=== PATIENT | female | born 1985 | race Caucasian/White ===

== ENCOUNTER 2018-01-17 06:00 | Inpatient (IN) | payer OTHER ==
[2018-01-17] MEDS ORDERED: TERBUTALINE SULFATE 1 MG/ML VIAL IV PRN (06:30)
[2018-01-17] MEDS ORDERED: IBUPROFEN 600 MG TAB PO PRN (06:30)
[2018-01-17] MEDS ORDERED: LR 1,000 ML IV PRN (06:30)
[2018-01-17] MEDS ORDERED: MISOPROSTOL 200 MCG TAB PR PRN (06:30)
[2018-01-17] MEDS ORDERED: OXYTOCIN/RINGERS LACTATE 1,000 ML IV PRN (06:30)
[2018-01-17] MEDS ORDERED: LIDOCAINE 1% 300 MG/30 ML SDV SC PRN (06:30)
[2018-01-17] MEDS ORDERED: OLIVE OIL 118 ML BTL MISC PRN (06:30)
[2018-01-17] MEDS ORDERED: EPSOM SALT 454 GM TP PRN (06:30)
[2018-01-17 07:13] LABS: PLATELET COUNT 261 10^3/uL (150-400)
--- NOTE | 2018-01-17 08:18 | PDGENHP ---
History and Physical History and Physical: CARE: [facility] HPI: Patient is a 32 yo with IUP@41-1wks that presents to L&D for IOL. She was seen in office 01/16/18 and had pritchett balloon placed with 40mL. She presents to L& D this morning for IOL. She denies any regular contractions, LOF, Vb. She reports +FM. EDC: 01/09/18 which is based on LMP: 04/03/17 which is known and consistent with Ultrasound at 8 weeks. Her is complicated by: - migraines with aura Review of Systems: Constitutional: Denies any fever, chills, or fatigue HEENT: denies any visual changes, difficulty swallowing, hearing loss Cardiovascular: Denies any chest pain, palpitations, leg swelling Respiratory: denies any cough, wheezing, or shortness of breathe GI: Denies any nausea, vomiting, diarrhea, constipation : denies any dysuria, urgency, frequency, vaginal bleeding Musculoskeletal: denies any muscle or bone pain Skin: denies any rashes Neuro: denies any headache, seizures, lightheadedness, dizziness, or loss of consciousness Psychiatric: denies any depression, anxiety, or SI/HI thoughts HISTORY: Previous OB history: G1 Past medical history: migraines with aura Past surgical history: oral surgery Medications: PNV Allergies (list reaction): NKDA LABS: Rh: A+ ABS: Neg Rubella: Immune HbsAg: NR HIV: NR VDRL: NR 1hr: 122 GC: Neg Chlamydia: Neg Pap: Normal GBS: neg BMI: (prepreg)19 PHYSICAL EXAM: Constitutional: WN, A&Ox3 HEENT: normocephalic atraumatic, supple Heart: RRR, no murmur Chest: CTA-B Abdomen: Soft, nontender, gravid SVE: /th/high (in office 01/16/18) Extremities: 1+ pedal edema, negative homans sign Neuro: grossly normal Psych: normal affect assessment: Reassuring FHTs,cat 1 FHR tracing +accels, no decels, moderate variability Contractions: toco: none Assessment: 1) 32 yo with IUP@41-1wks 2) IOL 3) GBS negative 4) Cat 1 FHR tracing Plan: 1) Admit to L&D 2) proceed with IOL 3) pain management PRN 4) reassess 2h/PRN 5) anticipate
[2018-01-17] MEDS ORDERED: MISOPROSTOL 100 MCG TAB PO SCH (08:30)
--- NOTE | 2018-01-17 09:25 | OBPROG ---
Labor Progress Note Assessment/Plan: Assessment: [id number] with IUP@41-1wks PD IOL GBS Negative cat 1 FHR tracing Plan: pritchett balloon, deflated and cervix thick- therefore will cont with cervical ripening with cytotec pt consents to use of cytotec cont EFM reg diet reassess 4hr/PRN 01/17/18 09:23 Subjective/Intrapartum Course: 01/17/18 09:22 pt doing well, denies any pain. She denies any contractions, LOF, VB. FOB at BS , supportive. Objective: 01/17/18 06:52 Patient ABO/Rh A POSITIVE 01/17/18 06:52 - SVE Dilation (cm): 2 Effacement (%): 0 Station: -3 - Contraction Pattern Assessment Current Contraction Pattern: Irregular Oxytocin Orders Assessment - Pre-Induction/Augmentation Assessment Gestational Age: 41 week(s) and 1 day(s) ICD10 Worksheet Patient Problems: Problems Problem Status Onset Encounter for induction of labor Acute - ICD10 Problem Qualifiers (1) Encounter for induction of labor
--- NOTE | 2018-01-17 11:15 | OBPROG ---
Labor Progress Note Assessment/Plan: Assessment: strip check: FHR: cat 1 FHR tracing baseline: 140, +accels, no decels UC: toco: q 3-6min Subjective/Intrapartum Course: 01/17/18 09:22 pt doing well, denies any pain. She denies any contractions, LOF, VB. FOB at BS , supportive. Objective: 01/17/18 06:52 Patient ABO/Rh A POSITIVE 01/17/18 06:52 - Contraction Pattern Assessment Current Contraction Pattern: Regular, Irregular - FHR Assessment Cabral FHR (bpm): 140 FHR Pattern Variability: Moderate FHR Category: 1 Oxytocin Orders Assessment - Pre-Induction/Augmentation Assessment Gestational Age: 41 week(s) and 1 day(s) ICD10 Worksheet Patient Problems: Problems Problem Status Onset Encounter for induction of labor Acute Encounter for induction of labor Acute - ICD10 Problem Qualifiers (1) Encounter for induction of labor
--- NOTE | 2018-01-17 13:53 | OBPROG ---
Labor Progress Note Assessment/Plan: Assessment: [id number] with IUP@41-1wks PD IOL cat 1 FHR Tracing Plan: cont EFM will wait 1 hour to reassess contraction pattern, if able will give cytotec again. Subjective/Intrapartum Course: 01/17/18 09:22 pt doing well, denies any pain. She denies any contractions, LOF, VB. FOB at BS , supportive. Objective: 01/17/18 06:52 Patient ABO/Rh A POSITIVE 01/17/18 06:52 - Contraction Pattern Assessment Current Contraction Pattern: Regular Oxytocin Orders Assessment - Pre-Induction/Augmentation Assessment Gestational Age: 41 week(s) and 1 day(s) ICD10 Worksheet Patient Problems: Problems Problem Status Onset Encounter for induction of labor Acute Encounter for induction of labor Acute
[2018-01-17] MEDS ORDERED: LIDOCAINE 1% 300 MG/30 ML SDV ONE (15:41)
[2018-01-17] MEDS ORDERED: AMMONIA AROMATIC 1 EACH AMP IH ONE (15:41)
[2018-01-17] MEDS ORDERED: OXYTOCIN 10 UNIT/ML VIAL ONE (15:41)
[2018-01-17] MEDS ORDERED: TERBUTALINE SULFATE 1 MG/ML VIAL ONE (15:41)
[2018-01-17] MEDS ORDERED: OLIVE OIL 118 ML BTL ONE (15:41)
[2018-01-17] MEDS ORDERED: MISOPROSTOL 200 MCG TAB ONE (15:42)
--- NOTE | 2018-01-17 16:09 | OBPROG ---
Labor Progress Note Assessment/Plan: Assessment: [id number] with IUP@41-1wks PD IOL cat 1 FHR Tracing GBS Negative Plan: place pritchett, monitor overnight and start IOL in the morning pain management PRN reassess 2hr/PRN Discussed with Dr Price- agrees with plan of care 01/17/18 16:06 Subjective/Intrapartum Course: 01/17/18 09:22 pt doing well, denies any regular contractions. She reports feeling some cramping with contractions. She is able to rest. She denies any LOF. She does report some bloody show. She reports +FM. FOB @ BS, supportive. Objective: 01/17/18 06:52 01/17/18 06:50 Patient ABO/Rh A POSITIVE 01/17/18 06:52 Uric Acid 2.5 mg/dL (2.5-6.8) 01/17/18 06:50 AST 30 IU/L (14-46) 01/17/18 06:50 ALT 23 IU/L (9-52) 01/17/18 06:50 Lactate Dehydrogenase 651 IU/L (313-618) H 01/17/18 06:50 - SVE Dilation (cm): 2 Effacement (%): 50 Station: -3 (posterior) - Contraction Pattern Assessment Current Contraction Pattern: Regular - Procedures Non-surgical Procedures: Other (Specify) (pritchett balloon placed with 40mL, pt tolerated procedure well) Oxytocin Orders Assessment - Pre-Induction/Augmentation Assessment Gestational Age: 41 week(s) and 1 day(s) ICD10 Worksheet Patient Problems: Problems Problem Status Onset Encounter for induction of labor Acute Encounter for induction of labor Acute
[2018-01-17] MEDS: MISOPROSTOL 50 MCG CAP PO SCH ×2 (16:39→22:49)
[2018-01-17] MEDS ORDERED: ACETAMINOPHEN 500 MG TAB PO PRN (19:23)
--- NOTE | 2018-01-17 19:25 | OBPROG ---
Labor Progress Note Assessment/Plan: Assessment: [id number] with IUP@41-1wks PD IOL- pritchett bulb in place cat 1 FHR Tracing GBS Negative Plan: cont EFM ambien to help sleep tylenol and IV fluid bolus to promote normal temp reassess PRN plan to start pitocin at 0600 Subjective/Intrapartum Course: pt doing well, denies any regular contractions, but states she is still feeling some cramping with contractions. She is able to rest. She denies any LOF. She does report some bloody show. She reports +FM. FOB @ BS, supportive. Objective: 01/17/18 06:52 01/17/18 06:50 Patient ABO/Rh A POSITIVE 01/17/18 06:52 Uric Acid 2.5 mg/dL (2.5-6.8) 01/17/18 06:50 AST 30 IU/L (14-46) 01/17/18 06:50 ALT 23 IU/L (9-52) 01/17/18 06:50 Lactate Dehydrogenase 651 IU/L (313-618) H 01/17/18 06:50 - Contraction Pattern Assessment Current Contraction Pattern: Regular - Procedures Non-surgical Procedures: Other (Specify) (pritchett balloon in place) Oxytocin Orders Assessment - Pre-Induction/Augmentation Assessment Gestational Age: 41 week(s) and 1 day(s) ICD10 Worksheet Patient Problems: Problems Problem Status Onset Encounter for induction of labor Acute Encounter for induction of labor Acute
[2018-01-17] MEDS ORDERED: LR 1,000 ML IV SCH (19:30)
[2018-01-17] MEDS ORDERED: ZOLPIDEM TARTRATE 5 MG TAB PO PRN (20:04)
--- NOTE | 2018-01-17 21:17 | OBPROG ---
Labor Progress Note Assessment/Plan: Assessment: [id number] with IUP@41-1wks PD IOL- pritchett bulb in place cat 1 FHR Tracing GBS Negative Maternal Fever Plan: doppler FHR q 4hours ambien to help sleep tylenol and IV fluid bolus PRN to promote normal temp reassess PRN plan to start pitocin at 0600 01/17/18 21:15 Subjective/Intrapartum Course: pt doing well, denies any regular contractions, but states she is still feeling some cramping with contractions. She is able to rest. She denies any LOF. She does report some bloody show. She reports +FM. FOB @ BS, supportive.Denies any headaches or chills/aches. 01/17/18 21:15 Objective: 01/17/18 06:52 01/17/18 06:50 Patient ABO/Rh A POSITIVE 01/17/18 06:52 Uric Acid 2.5 mg/dL (2.5-6.8) 01/17/18 06:50 AST 30 IU/L (14-46) 01/17/18 06:50 ALT 23 IU/L (9-52) 01/17/18 06:50 Lactate Dehydrogenase 651 IU/L (313-618) H 01/17/18 06:50 - Contraction Pattern Assessment Current Contraction Pattern: Regular - FHR Assessment Cabral FHR (bpm): 150 FHR Pattern Variability: Moderate FHR Category: 1 - Procedures Non-surgical Procedures: Other (Specify) (pritchett balloon in place) Oxytocin Orders Assessment - Pre-Induction/Augmentation Assessment Gestational Age: 41 week(s) and 1 day(s) ICD10 Worksheet Patient Problems: Problems Problem Status Onset Encounter for induction of labor Acute Encounter for induction of labor Acute
[2018-01-18] MEDS ORDERED: OXYTOCIN/RINGERS LACTATE 30 UNIT/500 ML BAG IV ONE (05:38)
[2018-01-18] MEDS ORDERED: LR 500 ML IV PRN (09:19)
[2018-01-18] MEDS ORDERED: OXYTOCIN/RINGERS LACTATE 500 ML IV SCH (09:30)
--- NOTE | 2018-01-18 12:47 | OBPROG ---
Labor Progress Note Assessment/Plan: Assessment: Pit currently at 12, balloon still in, but getting more uncomfortable. Will recheck in 2 hrs and if balloon is out, AROM, if balloon is not out, will take it down and AROM. FHR Cat 1. Long discussion w pt regarding plan of care. Subjective/Intrapartum Course: pt doing well, denies any regular contractions, but states she is still feeling some cramping with contractions. She is able to rest. She denies any LOF. She does report some bloody show. She reports +FM. FOB @ BS, supportive.Denies any headaches or chills/aches. 01/17/18 21:15 01/18/18 12:44 Pit started this AM around 1000. Pt now feeling regular ctxs that are mildly uncomfortable, but tolerable. Balloon still in place. Objective: 01/17/18 06:52 01/17/18 06:50 Patient ABO/Rh A POSITIVE 01/17/18 06:52 Uric Acid 2.5 mg/dL (2.5-6.8) 01/17/18 06:50 AST 30 IU/L (14-46) 01/17/18 06:50 ALT 23 IU/L (9-52) 01/17/18 06:50 Lactate Dehydrogenase 651 IU/L (313-618) H 01/17/18 06:50 - Contraction Pattern Assessment Current Contraction Pattern: Regular - FHR Assessment Cabral FHR (bpm): 135 FHR Pattern Variability: Moderate FHR Category: 1 - Procedures Non-surgical Procedures: Other (Specify) (pritchett balloon in place) Oxytocin Orders Assessment - Pre-Induction/Augmentation Assessment Gestational Age: 41 week(s) and 1 day(s) ICD10 Worksheet Patient Problems: Problems Problem Status Onset Encounter for induction of labor Acute Encounter for induction of labor Acute
[2018-01-18] MEDS: MISOPROSTOL 50 MCG CAP PO SCH (16:02)
[2018-01-18] MEDS ORDERED: BUPIVACAINE 0.25% 30 ML SDV ONE (16:09)
[2018-01-18] MEDS ORDERED: PHENYLEPHRINE HCL 100 MCG/ML SYR ONE ×2 (16:09→16:41)
--- NOTE | 2018-01-18 16:44 | PREANESOB ---
Obstetric Pre-Anesthesia Info - General Info : 1 Para: 0 GALILEO: 01/09/18 Gestational Age: 41 week(s) and 1 day(s) - Labor Status Cervical Dilation per last OB SVE: 2 Station per last OB SVE: -3 (posterior) Rupture of Membranes Date: 01/18/18 Rupture of Membranes Time: 15:20 Anesthesia Allergies/Adverse Reactions: Allergy/AdvReac Type Severity Reaction Status Date / Time kiwi Allergy Tingling Verified 01/17/18 06:14 of mouth/throat Home Medications: Medication Instructions Recorded 01/17/18 Visit Medications: Generic Name Dose Route Start Last Admin Trade Name Freq PRN Reason Stop Dose Admin Acetaminophen 1,000 mg 01/17/18 19:23 01/17/18 19:32 Tylenol PO 07/16/18 19:22 1,000 mg Q6HRS PRN Administration Pain, Mild/Fever, Can Take PO Oxytocin/Lactated Ringer's 1,000 mls @ 125 mls/hr 01/17/18 06:30 Pitocin 20 Units/Lr (Premix) IV PRN PRN Post bleeding Lactated Ringer's 1,000 mls @ 125 mls/hr 01/17/18 19:30 01/17/18 19:32 Lr IV 07/16/18 19:29 1,000 mls CONT OBDULIO Administration Lactated Ringer's 500 mls @ 500 mls/hr 01/18/18 09:19 Lr IV 01/19/18 09:19 PRN PRN Maternal Hypotension Oxytocin/Lactated Ringer's 500 mls @ 0 mls/hr 01/18/18 09:30 01/18/18 09:20 Pitocin 30 Units/Lr (Premix) IV 07/17/18 09:29 500 mls CONT OBDULIO Administration Protocol Per Protocol Fentanyl 200 mcg/ Bupivacaine 100 mls @ 0 mls/hr 01/18/18 17:00 HCl 20 ml/ Sodium Chloride EP 01/28/18 16:59 CONT OBDULIO Protocol As Directed Ibuprofen 600 mg 01/17/18 06:30 Motrin PO ONCE PRN post , pain Lidocaine HCl 300 mg 01/17/18 06:30 Lidocaine Hcl 1% SC 07/16/18 06:29 ONCE PRN episiotomy Magnesium Sulfate 454 gm 01/17/18 06:30 Epsom Salt TP 07/16/18 06:29 Q1H PRN perineal discomfort Misoprostol 800 - 1,000 mcg 01/17/18 06:30 Cytotec [place] ONCE PRN Vaginal Atony/Bleeding [place] Oil 118 ml 01/17/18 06:30 Sweet Oil MISC 07/16/18 06:29 ONCE PRN perineal massage Terbutaline Sulfate 0.25 mg 01/17/18 06:30 Brethine IV 07/16/18 06:29 ONCE PRN Tachysystole Zolpidem Tartrate 5 mg 01/17/18 20:04 01/17/18 21:38 Ambien PO 07/16/18 20:03 5 mg HS PRN Administration Sleep/Insomnia Discontinued Medications Generic Name Dose Route Start Last Admin Trade Name Freq PRN Reason Stop Dose Admin Ammonia (Aromatic Spirit) Confirm 01/17/18 15:41 Ammonia Aromatic Administered 01/17/18 15:42 Dose 1 each IH .STK-MED ONE Bupivacaine HCl Confirm 01/18/18 16:09 Sensorcaine 0.25% Sdv Administered 01/18/18 16:10 Dose 30 ml .ROUTE .STK-MED ONE Lactated Ringer's 1,000 mls @ 0 mls/hr 01/17/18 06:30 Lr IV 01/18/18 06:29 PRN PRN SEE PROTOCOL CONDITIONS Protocol Per Protocol Lidocaine HCl Confirm 01/17/18 15:41 Lidocaine Hcl 1% Administered 01/17/18 15:42 Dose 300 mg .ROUTE .STK-MED ONE Misoprostol 50 mcg 01/17/18 08:30 01/17/18 09:17 Cytotec PO 07/16/18 08:29 50 mcg Q4H OBDULIO Administration Misoprostol 50 mcg 01/17/18 09:00 01/18/18 16:02 Cytotec PO 07/16/18 08:59 Not Given Q4H OBDULIO Misoprostol Confirm 01/17/18 15:42 Cytotec Administered 01/17/18 15:43 Dose 1,000 mcg .ROUTE .STK-MED ONE [place] Oil Confirm 01/17/18 15:41 Sweet Oil Administered 01/17/18 15:42 Dose 118 ml .ROUTE .STK-MED ONE Oxytocin Confirm 01/17/18 15:41 Pitocin Administered 01/17/18 15:42 Dose 40 unit .ROUTE .STK-MED ONE Oxytocin/Lactated Ringer's Confirm 01/18/18 05:38 Pitocin 30 Units/Lr (Premix) Administered 01/18/18 05:39 Dose 30 unit IV .STK-MED ONE Phenylephrine HCl Confirm 01/18/18 16:09 Neosynephrine Administered 01/18/18 16:10 Dose 1,000 mcg .ROUTE .STK-MED ONE Phenylephrine HCl Confirm 01/18/18 16:41 Neosynephrine Administered 01/18/18 16:42 Dose 1,000 mcg .ROUTE .STK-MED ONE Terbutaline Sulfate Confirm 01/17/18 15:41 Brethine Administered 01/17/18 15:42 Dose 1 mg .ROUTE .STK-MED ONE - Anesthesia History Response to Local Anesthetics: Normal Anesthesia & Operative History: No Prior Problems Family Anesthesia History: Not Applicable - Vital Signs Latest Vital Signs (Nursing): per nursing Height/Weight (Nursing): Height 154.94 cm Weight 64.41 kg - Focused Exam Neck exam: FROM Mallampati Score: Class 3 Mouth exam: normal dental/mouth exam, poor dentition Pulmonary: no respiratory distress Cardiovascular: regular rate and rhythym Labs: 01/17/18 06:52 01/17/18 06:50 Patient ABO/Rh A POSITIVE 01/17/18 06:52 Uric Acid 2.5 mg/dL (2.5-6.8) 01/17/18 06:50 AST 30 IU/L (14-46) 01/17/18 06:50 ALT 23 IU/L (9-52) 01/17/18 06:50 Lactate Dehydrogenase 651 IU/L (313-618) H 01/17/18 06:50 - Plan Anesthetic Plan: HERB Consent Signed and on Chart: Yes Patient/Guardian Understands and Agrees to Plan: Yes
[2018-01-18] MEDS ORDERED: fentaNYL 200 MCG, BUPIVACAINE 0.5% 20 ML in NS 100 ML EP SCH (17:00)
--- NOTE | 2018-01-18 17:07 | POSTANESTH ---
Post Anesthetic Evaluation Cardiovascular Status: Normal, Stable, Similar to Pre-Op Cond Respiratory Status: Normal, Stable, Similar to Pre-op Cond. Level of Consciousness/Mental Status: Can Participate in Eval, Alert and Oriented Pain Control: Adequate, Prn Tx Ordered Nausea/Vomiting Control: Adequate, Prn Tx Ordered Complications Possibly Related to Anesthesia: None Noted
[2018-01-18] MEDS ORDERED: LR 500 ML IV SCH (17:30)
[2018-01-18] MEDS ORDERED: LR 1,000 ML IV SCH (23:45)
[2018-01-18] MEDS ORDERED: ceFAZolin 2 GM/SWFI 2 GM/20 ML SYR IVP ONE (23:45)
[2018-01-18] MEDS ORDERED: LR 500 ML IV ONE (23:48)
--- NOTE | 2018-01-19 00:08 | OBPROG ---
Labor Progress Note Assessment/Plan: Assessment: I had a long talk with Eladia and her partner here this evening. We have been unable to get her into an adequate ctx pattern despite many hours of Pitocin. Pritchett bulb was removed with AROM this AM, Pit continued at that point. IUPC placed. We have never been able to achieve regular strong contractions all day at any Pitocin concentration. We did get up as high as 24 with no real change and serial exams have shown slow and most recently no progress or interval change in the past 2 hours. Baby continues to look good, and at this point only have been ruptured for approximately 10 hrs. I checked her at the time of this note - no cervical change in the past 2 hrs, pattern indeed NOT adequate. Discussed options of now for arrest of dilation versus option of turning off the Pitocin for a holiday/break overnight and restarting again in the AM. I counseled her that its possible we could get a better pattern tomorrow AM, but could not garauntee that. Also induces some small risk as she is now ruptured with IUPC in place and risk of chorio would be something to consider. Ultimately she elected to move ahead with which I think is very reasonable, this has been a long induction process for them. Routine orders, consents including RBA discussed - signed in person. Subjective/Intrapartum Course: pt doing well, denies any regular contractions, but states she is still feeling some cramping with contractions. She is able to rest. She denies any LOF. She does report some bloody show. She reports +FM. FOB @ BS, supportive.Denies any headaches or chills/aches. 01/17/18 21:15 01/18/18 12:44 Pit started this AM around 1000. Pt now feeling regular ctxs that are mildly uncomfortable, but tolerable. Balloon still in place. 01/19/18 00:03 Comfortable, mild lower back pain unchanged over many hours. Objective: 01/17/18 06:52 01/17/18 06:50 Patient ABO/Rh A POSITIVE 01/17/18 06:52 Uric Acid 2.5 mg/dL (2.5-6.8) 01/17/18 06:50 AST 30 IU/L (14-46) 01/17/18 06:50 ALT 23 IU/L (9-52) 01/17/18 06:50 Lactate Dehydrogenase 651 IU/L (313-618) H 01/17/18 06:50 - SVE Dilation (cm): 7 Effacement (%): 80 Station: 0 Membranes: AROM Amniotic Fluid Color: Clear - Contraction Pattern Assessment Current Contraction Pattern: Regular - FHR Assessment Cabral FHR (bpm): 150 FHR Pattern Variability: Moderate FHR Category: 1 - Procedures Non-surgical Procedures: Amniotomy, IUPC, Other (Specify) (pritchett balloon in place) Oxytocin Orders Assessment - Pre-Induction/Augmentation Assessment Gestational Age: 41 week(s) and 1 day(s) ICD10 Worksheet Patient Problems: Problems Problem Status Onset Encounter for induction of labor Acute Encounter for induction of labor Acute
[2018-01-19] MEDS ORDERED: ceFAZolin 2 GM/DEXTROSE 100 ML IV ONE (00:09)
[2018-01-19] MEDS ORDERED: LR 500 ML IV ONE (00:09)
[2018-01-19] MEDS ORDERED: fentaNYL 100 MCG/2 ML INJ ONE (00:21)
[2018-01-19] MEDS ORDERED: morphINE PF 5 MG/10 ML INJ ONE (00:21)
[2018-01-19] MEDS ORDERED: ONDANSETRON 4 MG/2 ML VIAL ONE (00:22)
[2018-01-19] MEDS ORDERED: LR 1,000 ML IV SCH (00:30)
[2018-01-19] MEDS ORDERED: OXYTOCIN 100 UNITS/10 ML VIAL ONE (00:44)
[2018-01-19] MEDS ORDERED: epHEDrine SULFATE 10 MG/ML SYR ONE (00:59)
[2018-01-19] MEDS ORDERED: BISACODYL 10 MG SUPP PR PRN (01:33)
[2018-01-19] MEDS ORDERED: ACETAMINOPHEN 325 MG TAB PO PRN (01:33)
[2018-01-19] MEDS ORDERED: PROMETHAZINE HCL 25 MG/ML INJ IVP PRN (01:33)
[2018-01-19] MEDS ORDERED: POLYETHYLENE GLYCOL 3350 17 GM PKT PO PRN (01:33)
[2018-01-19] MEDS ORDERED: MAGNESIUM HYDROXIDE 30 ML UDCUP PO PRN (01:33)
[2018-01-19] MEDS ORDERED: LACTULOSE 20 GM/30 ML UDCUP PO PRN (01:33)
[2018-01-19] MEDS ORDERED: HYDROCODONE/APAP 5/325 TAB PO PRN ×2 (01:33→01:44)
--- NOTE | 2018-01-19 01:38 | POSTOPPROG ---
Post Op Note Date of Operation: 01/19/18 Surgeon: Elder Chan Provisioning Specialist: CHERELLE Andres Anesthesia: Epidural Pre-op Diagnosis: Failed induction of labor, Arrest of dilation Post-op Diagnosis: Same Procedure: Primary low transverse section Findings: Normal uterus, normal bilateral tubes and ovaries Inf/Abcess present in the surg proc area at time of surgery?: No EBL: 700cc Complications: None Specimen(s): Placenta not sent to path, cord blood gasses sent.
--- NOTE | 2018-01-19 01:42 | SUROPNOTE ---
[facility] Operative Report - Surgery Date of Operation: 01/19/18 Surgeon: Elder Chan Lavatory Attendant: CHERELLE Andres Anesthesia: Epidural Pre-op Diagnosis: Failed induction of labor, Arrest of dilation Post-op Diagnosis: Same Procedure: Primary low transverse section Findings: Normal uterus, normal bilateral tubes and ovaries Inf/Abcess present in the surg proc area at time of surgery?: No EBL: 700cc Complications: None Specimen(s): Placenta not sent to path, cord blood gasses sent. Technique: The patient was taken to the OR where epidural was dosed and anesthesia found to be adequate. The patient was then positioned supine with a leftward tilt and a time-out was performed. She was given weight-based antibiotics prior to skin incision. The abdomen was prepped and draped in normal sterile fashion. A Pfannenstiel skin incision was made with the scalpel and carried down to the fascia. The fascia was incised in the midline and the incision extended bilaterally sharply with scissors. The fascia was dissected off of the underlying rectus muscles superiorly and inferiorly also sharply using scissors. The rectus were in the midline and the peritoneum identified and entered bluntly without issue. The peritoneal incision was extended and the bladder blade was then placed. The vesicouterine junction was identified and a bladder flap created sharply and developed bluntly. A transverse incision was made with the scalpel in the lower uterine segment and extended with cephalad and caudad traction on the incision edges. The head was encountered and easily elevated out of the pelvis and delivered atraumatically, followed by the shoulders and body. The nose and mouth were bulb suctioned. We did wait for 60 seconds before clamping and cutting the cord and then the was handed to pediatric staff. Cord blood gases were sent and the placenta was not sent to pathology. The uterus was then exteriorized and carefully wiped of all debris. The uterus was closed in two layers - the first layer was running with 180 0-vloc and the second a vertical imbricating layer using 0-vicryl. The gutters were cleared of all clots. The uterine incision was reinspected and found to be hemostatic after placement of additional figure of eight sutures of 3-0 vicryl. The uterus was then returned to the abdomen. The fascia was elevated and the rectus muscles and subcutaneous tissues were found to be hemostatic. The fascia was closed with a running 0-Vicryl - two sutures starting from the corners meeting in the midline. The subcutaneous tissues were irrigated and hemostasis obtained. The subcutaneous space was closed with interrupted sutures of 2-0 vicryl. The skin was closed with 4-0 vloc undyed and then covered with dressing. The patient tolerated the procedure and was taken to recovery in stable condition. Lap, needle, sponge, and instrument count were announced as correct times two. I was present and scrubbed for the entire case.
--- NOTE | 2018-01-19 01:43 | OBDEL ---
Info Type: Primary Presentation at Delivery: Vertex L&D Analgesia/Anesthesia Type: Epidural GBS+: No Intrapartum Medications: Generic Name Dose Route Start Last Admin Trade Name Freq PRN Reason Stop Dose Admin Lactated Ringer's 1,000 mls @ 125 mls/hr 01/17/18 19:30 01/17/18 19:32 Lr IV 07/16/18 19:29 1,000 mls CONT OBDULIO Administration Oxytocin/Lactated Ringer's 500 mls @ 0 mls/hr 01/18/18 09:30 01/18/18 09:20 Pitocin 30 Units/Lr (Premix) IV 07/17/18 09:29 500 mls CONT OBDULIO Administration Protocol Per Protocol Zolpidem Tartrate 5 mg 01/17/18 20:04 01/17/18 21:38 Ambien PO 07/16/18 20:03 5 mg HS PRN Administration Sleep/Insomnia Discontinued Medications Generic Name Dose Route Start Last Admin Trade Name Freq PRN Reason Stop Dose Admin Acetaminophen 1,000 mg 01/17/18 19:23 01/17/18 19:32 Tylenol PO 07/16/18 19:22 1,000 mg Q6HRS PRN Administration Pain, Mild/Fever, Can Take PO Misoprostol 50 mcg 01/17/18 08:30 01/17/18 09:17 Cytotec PO 07/16/18 08:29 50 mcg Q4H OBDULIO Administration Misoprostol 50 mcg 01/17/18 09:00 01/18/18 16:02 Cytotec PO 07/16/18 08:59 Not Given Q4H OBDULIO - Hospital Course Intrapartum: pt doing well, denies any regular contractions, but states she is still feeling some cramping with contractions. She is able to rest. She denies any LOF. She does report some bloody show. She reports +FM. FOB @ BS, supportive.Denies any headaches or chills/aches. 01/17/18 21:15 01/18/18 12:44 Pit started this AM around 1000. Pt now feeling regular ctxs that are mildly uncomfortable, but tolerable. Balloon still in place. 01/19/18 00:03 Comfortable, mild lower back pain unchanged over many hours. Indications for Delivery: Postterm Unfavorable Cervix Vaginal Delivery - Labor and Delivery Onset of Contractions Date: 01/18/18 Onset of Contractions Time: 15:30 Rupture of Membranes Date: 01/18/18 Rupture of Membranes Time: 15:20 Amniotic Fluid Color: Clear Non-surgical Procedures: Amniotomy, IUPC, Other (Specify) (pritchett balloon in place) Cord Gases: Cord Gases Cord Blood PCO2 44.9 mmHg (37-60) 01/19/18 01:00 Cord Base Excess -2.6 mEq/L (-13.6--3.2) H 01/19/18 01:00 Cord ABG pH 7.33 (7.10-7.37) 01/19/18 01:00 Cord VBG pH 7.38 (7.20-7.42) 01/19/18 01:00 Operative Report - Delivery Pre-op Diagnoses: Failed induction of labor, arrest of dilation 7cm Post-op Diagnoses: Same History of Prior Section: No Nulliparous Prior to Delivery: Yes Indications for Current Section: Arrest of Dilation (7cm) Procedure: Unscheduled Surgeon: Elder Chan Contracting Analyst: Sarah Piña Complications: Nucal Cord (Single) Findings: Normal uterus, normal bilateral tubes and ovaries. Vigorous baby girl, grossly normal placenta and cord. EBL: 700cc Cord Gases: Cord Gases Cord Blood PCO2 44.9 mmHg (37-60) 01/19/18 01:00 Cord Base Excess -2.6 mEq/L (-13.6--3.2) H 01/19/18 01:00 Cord ABG pH 7.33 (7.10-7.37) 01/19/18 01:00 Cord VBG pH 7.38 (7.20-7.42) 01/19/18 01:00 Joseph Data GALILEO: 01/09/18 Gestational Age: 41 week(s) and 3 day(s) [place] Delivery Date: 01/19/18 Sex of : Female ICD10 Worksheet Patient Problems: Problems Problem Status Onset Arrest of dilation, delivered, current hospitalization Acute Encounter for induction of labor Acute Encounter for induction of labor Acute Failed induction of labor Acute S/P primary low transverse Acute - ICD10 Problem Qualifiers (1) Arrest of dilation, delivered, current hospitalization (2) Failed induction of labor Qualifiers: Failed induction of labor type: unspecified Qualified Code(s): O61.9 - Failed induction of labor, unspecified (3) S/P primary low transverse
[2018-01-19] MEDS ORDERED: PHENYLEPHRINE HCL 100 MCG/ML SYR IVP PRN (01:44)
[2018-01-19] MEDS ORDERED: NALOXONE HCL 0.4 MG/ML INJ IVP PRN ×2 (01:44)
[2018-01-19] MEDS ORDERED: OXYCODONE/APAP 5/325 TAB PO PRN (01:44)
[2018-01-19] MEDS ORDERED: MEPERIDINE 25 MG/0.5 ML AMP IVP PRN (01:44)
[2018-01-19] MEDS ORDERED: ONDANSETRON 4 MG/2 ML VIAL IVP PRN ×2 (01:44)
--- NOTE | 2018-01-19 01:44 | PREANESOB ---
Obstetric Pre-Anesthesia Info - General Info Proposed Procedure: C/S : 1 Para: 0 G[place]O: 01/09/18 Gestational Age: 41 week(s) and 1 day(s) - Info Monitors: External FHR Pattern: Reassuring - Labor Status Cervical Dilation per last OB SVE: 7 Station per last OB SVE: 0 Rupture of Membranes Date: 01/18/18 Rupture of Membranes Time: 15:20 Amniotic Fluid Color: Clear PIH: No Indications for Labor Analgesia: Other (Specify) (C/S) Section History: Primary Labor Epidural: Yes Anesthesia Allergies/Adverse Reactions: Allergy/AdvReac Type Severity Reaction Status Date / Time kiwi Allergy Tingling Verified 01/17/18 06:14 of mouth/throat Home Medications: Medication Instructions Recorded 01/17/18 Visit Medications: Generic Name Dose Route Start Last Admin Trade Name Freq PRN Reason Stop Dose Admin Acetaminophen 325 - 650 mg 01/19/18 01:33 Tylenol PO 07/18/18 01:32 Q3HRS PRN Pain, Mild Hydrocodone Bitart/Acetaminophen 1 - 2 tab 01/19/18 01:33 [place] 5/325 PO 01/29/18 01:32 Q4HRS PRN Pain, Moderate Bisacodyl 10 mg 01/19/18 01:33 Dulcolax Rectal WI 07/18/18 01:32 DAILY PRN Constipation Protocol Oxytocin/Lactated Ringer's 1,000 mls @ 125 mls/hr 01/17/18 06:30 Pitocin 20 Units/Lr (Premix) IV PRN PRN Post bleeding Lactated Ringer's 1,000 mls @ 125 mls/hr 01/17/18 19:30 01/17/18 19:32 Lr IV 07/16/18 19:29 1,000 mls CONT OBDULIO Administration Lactated Ringer's 500 mls @ 500 mls/hr 01/18/18 09:19 Lr IV 01/19/18 09:19 PRN PRN Maternal Hypotension Oxytocin/Lactated Ringer's 500 mls @ 0 mls/hr 01/18/18 09:30 01/18/18 09:20 Pitocin 30 Units/Lr (Premix) IV 07/17/18 09:29 500 mls CONT OBDULIO Administration Protocol Per Protocol Fentanyl 200 mcg/ Bupivacaine 100 mls @ 0 mls/hr 01/18/18 17:00 HCl 20 ml/ Sodium Chloride EP 01/28/18 16:59 CONT OBDULIO Protocol As Directed Lactated Ringer's 500 mls @ 0 mls/hr 01/18/18 17:30 Lr IV 07/17/18 17:29 CONT OBDULIO As Directed Lactated Ringer's 1,000 mls @ 125 mls/hr 01/18/18 23:45 Lr IV 01/19/18 23:44 CONT [facility] Ibuprofen 600 mg 01/17/18 06:30 Motrin PO ONCE PRN post , pain Ibuprofen 600 mg 01/19/18 01:33 Motrin PO 07/18/18 01:32 Q6HRS PRN Pain, Mild Ketorolac Tromethamine 30 mg 01/19/18 06:00 Toradol IVP 01/20/18 00:01 Q6HRS [facility] Lactulose 20 gm 01/19/18 01:33 Cephulac PO 07/18/18 01:32 TID PRN Constipation Protocol Lidocaine HCl 300 mg 01/17/18 06:30 Lidocaine Hcl 1% SC 07/16/18 06:29 ONCE PRN episiotomy Magnesium Hydroxide 30 ml 01/19/18 01:33 Milk Of Magnesia PO 07/18/18 01:32 DAILY PRN Constipation Protocol Magnesium Sulfate 454 gm 01/17/18 06:30 Epsom Salt TP 07/16/18 06:29 Q1H PRN perineal discomfort Misoprostol 800 - 1,000 mcg 01/17/18 06:30 Cytotec WI ONCE PRN Vaginal Atony/Bleeding [place] Oil 118 ml 01/17/18 06:30 Sweet Oil MISC 07/16/18 06:29 ONCE PRN perineal massage Polyethylene Glycol 17 gm 01/19/18 01:33 Miralax PO 07/18/18 01:32 DAILY PRN Constipation, patient prefers Protocol Promethazine HCl 25 mg 01/19/18 01:33 Phenergan IVP 07/18/18 01:32 Q6HRS PRN Nausea/Vomiting, Use 1st Senna/Docusate Sodium 1 - 2 tab 01/19/18 09:00 Senokot-S PO 07/18/18 08:59 BID OBDULIO Protocol Simethicone 80 mg 01/19/18 01:33 Mylicon PO 07/18/18 01:32 .TIDMEALS AND HS PRN Gas Terbutaline Sulfate 0.25 mg 01/17/18 06:30 Brethine IV 07/16/18 06:29 ONCE PRN Tachysystole Zolpidem Tartrate 5 mg 01/17/18 20:04 01/17/18 21:38 Ambien PO 07/16/18 20:03 5 mg HS PRN Administration Sleep/Insomnia Discontinued Medications Generic Name Dose Route Start Last Admin Trade Name Beau PRN Reason Stop Dose Admin Acetaminophen 1,000 mg 01/17/18 19:23 01/17/18 19:32 Tylenol PO 07/16/18 19:22 1,000 mg Q6HRS PRN Administration Pain, Mild/Fever, Can Take PO Ammonia (Aromatic Spirit) Confirm 01/17/18 15:41 Ammonia Aromatic Administered 01/17/18 15:42 Dose 1 each IH .STK-MED ONE Bupivacaine HCl Confirm 01/18/18 16:09 Sensorcaine 0.25% Sdv Administered 01/18/18 16:10 Dose 30 ml .ROUTE .STK-MED ONE Ephedrine Sulfate Confirm 01/19/18 00:59 Ephedrine Sulfate Administered 01/19/18 01:00 Dose 10 mg .ROUTE .STK-MED ONE Fentanyl Confirm 01/19/18 00:21 Sublimaze Administered 01/19/18 00:22 Dose 100 mcg .ROUTE .STK-MED ONE Lactated Ringer's 1,000 mls @ 0 mls/hr 01/17/18 06:30 Lr IV 01/18/18 06:29 PRN PRN SEE PROTOCOL CONDITIONS Protocol Per Protocol Cefazolin Sodium 2 gm in 20 mls @ 40 mls/hr 01/18/18 23:45 Cefazolin Syringe IVP 01/19/18 00:14 ONCALL ONE Protocol Lactated Ringer's 500 mls @ 0 mls/hr 01/18/18 23:48 Lr IV 01/18/18 23:49 ONCE ONE As Directed Lidocaine HCl Confirm 01/17/18 15:41 Lidocaine Hcl 1% Administered 01/17/18 15:42 Dose 300 mg .ROUTE .STK-MED ONE Misoprostol 50 mcg 01/17/18 08:30 01/17/18 09:17 Cytotec PO 07/16/18 08:29 50 mcg Q4H OBDULIO Administration Misoprostol 50 mcg 01/17/18 09:00 01/18/18 16:02 Cytotec PO 07/16/18 08:59 Not Given Q4H OBDULIO Misoprostol Confirm 01/17/18 15:42 Cytotec Administered 01/17/18 15:43 Dose 1,000 mcg .ROUTE .STK-MED ONE Morphine Sulfate Confirm 01/19/18 00:21 Morphine Pf 5 Mg/10 Ml Administered 01/19/18 00:22 Dose 5 mg .ROUTE .STK-MED ONE [place] Oil Confirm 01/17/18 15:41 Sweet Oil Administered 01/17/18 15:42 Dose 118 ml .ROUTE .STK-MED ONE Ondansetron HCl Confirm 01/19/18 00:22 Zofran Administered 01/19/18 00:23 Dose 4 mg .ROUTE .STK-MED ONE Oxytocin Confirm 01/17/18 15:41 Pitocin Administered 01/17/18 15:42 Dose 40 unit .ROUTE .STK-MED ONE Oxytocin Confirm 01/19/18 00:44 Pitocin Administered 01/19/18 00:45 Dose 100 units .ROUTE .STK-MED ONE Oxytocin/Lactated Ringer's Confirm 01/18/18 05:38 Pitocin 30 Units/Lr (Premix) Administered 01/18/18 05:39 Dose 30 unit IV .STK-MED ONE Phenylephrine HCl Confirm 01/18/18 16:09 Neosynephrine Administered 01/18/18 16:10 Dose 1,000 mcg .ROUTE .STK-MED ONE Phenylephrine HCl Confirm 01/18/18 16:41 Neosynephrine Administered 01/18/18 16:42 Dose 1,000 mcg .ROUTE .STK-MED ONE Terbutaline Sulfate Confirm 01/17/18 15:41 Brethine Administered 01/17/18 15:42 Dose 1 mg .ROUTE .STK-MED ONE - Anesthesia History Response to Local Anesthetics: Normal Anesthesia & Operative History: No Prior Problems Family Anesthesia History: Negative - Social History Substance Use/Abuse: Denies - Vital Signs Height/Weight (Nursing): Height 154.94 cm Weight 64.41 kg - Focused Exam Neck exam: FROM Mallampati Score: Class 2 Mouth exam: normal dental/mouth exam Pulmonary: no respiratory distress, no rales or rhonchi, clear to auscultation Cardiovascular: regular rate and rhythym, no murmur, rub, or gallop Labs: 01/17/18 06:52 01/17/18 06:50 Patient ABO/Rh A POSITIVE 01/17/18 06:52 Uric Acid 2.5 mg/dL (2.5-6.8) 01/17/18 06:50 AST 30 IU/L (14-46) 01/17/18 06:50 ALT 23 IU/L (9-52) 01/17/18 06:50 Lactate Dehydrogenase 651 IU/L (313-618) H 01/17/18 06:50 - Plan Consent Signed and on Chart: Yes Patient/Guardian Understands and Agrees to Plan: Yes
--- NOTE | 2018-01-19 01:48 | POSTANESTH ---
Post Anesthetic Evaluation Cardiovascular Status: Normal, Stable Respiratory Status: Normal, Stable Level of Consciousness/Mental Status: Can Participate in Eval, Mildly Sleepy, Arousable Pain Control: Adequate, Prn Tx Ordered Nausea/Vomiting Control: Adequate, Prn Tx Ordered Complications Possibly Related to Anesthesia: None Noted
[2018-01-19] MEDS: KETOROLAC 30 MG/1 ML SDV IVP SCH ×3 (06:10→18:05)
--- NOTE | 2018-01-19 06:37 | PDMN ---
Medical Necessity Medical necessity: C/M review: Patient meets INPT criteria under MCG M-350 delivery: viable female . MD anticipates > 2 MN LOS for ongoing med nec for eval and TX of above.
--- NOTE | 2018-01-19 10:36 | OBPP ---
Progress Note Assessment/Plan: Assessment: [id number] s/p primary c/s POD#0 Plan: routine Post Op care OOB/ambulate pritchett d/c in AM cont to breastfeed/work with plan to d/c home in approx 48hrs 01/19/18 10:33 Subjective/ Course: 01/19/18 10:34 Pt doing ok- states she was only able to get 1 hr of sleep since delivery. She feels good about decision for c/s- accepting that it was the right decision. She is sitting on side of bed. denies any pain at this time. She is working on today, will pump if necessary. She denies any pain or heavy bleeding. Objective: 01/17/18 06:52 01/17/18 06:50 Patient ABO/Rh A POSITIVE 01/17/18 06:52 Uric Acid 2.5 mg/dL (2.5-6.8) 01/17/18 06:50 AST 30 IU/L (14-46) 01/17/18 06:50 ALT 23 IU/L (9-52) 01/17/18 06:50 Lactate Dehydrogenase 651 IU/L (313-618) H 01/17/18 06:50 Temp Pulse Resp BP Pulse Ox 36.3 C 80 18 101/64 95 01/19/18 08:21 01/19/18 08:21 01/19/18 09:15 01/19/18 08:21 01/19/18 09:15 Uterine Position/Fundal Height: At Umbilicus, Midline Uterine Tone: Firm Physical Exam - Physical Exam General Appearance: WD/WN, alert, no apparent distress Abdomen: non-tender, soft, dressing (C/D/I) Extremities: pedal edema Skin: normal color, warm/dry Neuro/Psych: alert, normal mood/affect, oriented x 3
[2018-01-19] MEDS: SENNOSIDES/DOCUSATE SODIUM TAB PO SCH ×2 (14:00→21:25)
[2018-01-20] MEDS: KETOROLAC 30 MG/1 ML SDV IVP SCH (00:30)
[2018-01-20] MEDS: IBUPROFEN 600 MG TAB PO PRN ×2 (06:18→21:18)
[2018-01-20] MEDS: SENNOSIDES/DOCUSATE SODIUM TAB PO SCH ×2 (09:20→21:18)
[2018-01-20] MEDS: SIMETHICONE 80 MG TAB CHEW PO PRN ×2 (09:21→21:18)
--- NOTE | 2018-01-20 10:46 | OBPP ---
Progress Note Assessment/Plan: Assessment: POD1 (delivered shortly after midnight on 01/19/18) s/p PLTCS for arrest of dilation/failed IOL for post-dates. Doing well - no acute issues. They poked her multiple times to get postop labs this AM with no success, will forgo that blood draw. VS are stable and pt not symptomatic of any anemia. Incision CDI looks good. BF going well, baby doing well - out of NICU after transient issues with O2. Likely home tomorrow. JM Subjective/ Course: 01/19/18 10:34 Pt doing ok- states she was only able to get 1 hr of sleep since delivery. She feels good about decision for c/s- accepting that it was the right decision. She is sitting on side of bed. denies any pain at this time. She is working on today, will pump if necessary. She denies any pain or heavy bleeding. 01/20/18 14:09 Eladia is doing great this AM - happy to be getting some more rest. BF going okay , some sharp stinging pain in the right nipple, n s/sx of infection. Pain well controlled, incision is not bothering her in particular. Objective: 01/17/18 06:52 01/17/18 06:50 Patient ABO/Rh A POSITIVE 01/17/18 06:52 Uric Acid 2.5 mg/dL (2.5-6.8) 01/17/18 06:50 AST 30 IU/L (14-46) 01/17/18 06:50 ALT 23 IU/L (9-52) 01/17/18 06:50 Lactate Dehydrogenase 651 IU/L (313-618) H 01/17/18 06:50 Temp Pulse Resp BP Pulse Ox 37.0 C 90 18 108/74 94 01/20/18 00:30 01/20/18 09:08 01/20/18 09:08 01/20/18 09:08 01/20/18 09:08 Uterine Position/Fundal Height: At Umbilicus Uterine Tone: Firm Physical Exam - Physical Exam General Appearance: alert, no apparent distress Abdomen: non-tender, soft, incision (CDI w sutures)
--- NOTE | 2018-01-20 11:01 | SOAPPROG ---
SOAP Progress Note Assessment/Plan: Assessment: POD #1 s/p C/S for failure to progress. Anesthesia obtained via indwelling lumbar epidural catheter. Epidural morphine used for extended POPC. Pt. doing well. No apparent anesthetic complications. Plan: D/C to home per OB service. 01/20/18 10:58 Subjective: Pt. denies N/V, pruritus, back pain, motor/sensory deficits, urinary continence. Admits pain controlled well. Objective: Vital Signs Temp Pulse Resp BP Pulse Ox 37.0 C 90 18 108/74 94 01/20/18 00:30 01/20/18 09:08 01/20/18 09:08 01/20/18 09:08 01/20/18 09:08 Laboratory Results 01/17/18 06:52 01/17/18 06:50 01/19/18 01/20/18 01/21/18 05:59 05:59 05:59 Intake Total 150 1880 Output Total 850 5390 3621 Balance -[phone] -[phone] -3679 - Time Spent With Patient Time Spent With Patient: 10 minutes - Pending Discharge Pending Discharge Within 24 Hours: No Pending Discharge Within 48 Hours: Yes Pending Discharge Date: 01/22/18 Pending Discharge Time: 11:00 Physical Exam - Physical Exam General Appearance: WD/WN, alert, no apparent distress Extremities: normal range of motion Neuro/Psych: no motor/sensory deficits, alert, normal mood/affect, oriented x 3 ICD10 Worksheet Patient Problems: Problems Problem Status Onset Arrest of dilation, delivered, current hospitalization Acute Encounter for induction of labor Acute Encounter for induction of labor Acute Failed induction of labor Acute S/P primary low transverse Acute
[2018-01-20] MEDS: ACETAMINOPHEN 500 MG TAB PO PRN (17:45)
[2018-01-20] MEDS ORDERED: LIDOCAINE 2% JELLY 5 ML TUBE ONE (17:47)
[2018-01-21] MEDS: IBUPROFEN 600 MG TAB PO PRN ×4 (03:14→22:38)
[2018-01-21] MEDS: SIMETHICONE 80 MG TAB CHEW PO PRN (10:09)
[2018-01-21] MEDS: SENNOSIDES/DOCUSATE SODIUM TAB PO SCH ×2 (10:09→19:40)
--- NOTE | 2018-01-21 10:34 | OBPP ---
Progress Note Assessment/Plan: Assessment:POD#2 s/p primary LTCS. Had fever 1700, none since and UA was neg ( was within 24 hour of delivery). Bilat lower extremity edema -no signs of DVT of weakness Plan: Encourage hydration, ambulation, [place] for additional pain control so she can get some more rest. Anticipate dc home tomorrow. Maite Thibodeaux MD, FACOG 01/21/18 10:37 Subjective/ Course: 01/19/18 10:34 Pt doing ok- states she was only able to get 1 hr of sleep since delivery. She feels good about decision for c/s- accepting that it was the right decision. She is sitting on side of bed. denies any pain at this time. She is working on today, will pump if necessary. She denies any pain or heavy bleeding. 01/20/18 14:09 Eladia is doing great this AM - happy to be getting some more rest. BF going okay , some sharp stinging pain in the right nipple, n s/sx of infection. Pain well controlled, incision is not bothering her in particular. 01/21/18 10:34 Pt doing well this morning. Has gotten some rest but still quite fatigued. BF going OK. Ambulating, voiding and ena reg diet without difficulty. + flatus. Pain has been controlled with ibuprofen only - willing to consider [place] to help her rest more comfortably. Mod lochia. Noticed a little tingling in left foot - no weakness or change in gait or pain. 01/21/18 10:37 Objective: 01/17/18 06:52 01/17/18 06:50 Patient ABO/Rh A POSITIVE 01/17/18 06:52 Uric Acid 2.5 mg/dL (2.5-6.8) 01/17/18 06:50 AST 30 IU/L (14-46) 01/17/18 06:50 ALT 23 IU/L (9-52) 01/17/18 06:50 Lactate Dehydrogenase 651 IU/L (313-618) H 01/17/18 06:50 Temp Pulse Resp BP Pulse Ox 36.1 C 88 20 114/81 H 97 01/20/18 20:00 01/20/18 20:00 01/20/18 20:00 01/20/18 20:00 01/20/18 20:00 Tm 38.2 at 1700 CV - RRR chest - CTAB abd - soft, fundus firm at u-2, NT, + BS inc - c/d/i ext - 2+ pitting edema BLE, neg arianne's, strength 5/5 bilateral ankle flex/ extend and knee extend. Uterine Position/Fundal Height: Umbilicus -2 Uterine Tone: Firm
[2018-01-22] MEDS: IBUPROFEN 600 MG TAB PO PRN ×4 (04:33→23:19)
--- NOTE | 2018-01-22 10:58 | OBPP ---
Progress Note Assessment/Plan: Assessment: Assessment:POD#3 s/p primary LTCS. Breast feeding going well but exhausted - very little sleep- pumping frequently due to baby >10% weight loss. Would like to stay another night - does not feel ready to go home Plan: Continue to Encourage hydration, ambulation - rest as much as possible assisting with Plan discharge tomorrow 01/22/18 19:42 Subjective/ Course: 01/19/18 10:34 Pt doing ok- states she was only able to get 1 hr of sleep since delivery. She feels good about decision for c/s- accepting that it was the right decision. She is sitting on side of bed. denies any pain at this time. She is working on today, will pump if necessary. She denies any pain or heavy bleeding. 01/20/18 14:09 Eladia is doing great this AM - happy to be getting some more rest. BF going okay , some sharp stinging pain in the right nipple, n s/sx of infection. Pain well controlled, incision is not bothering her in particular. 01/21/18 10:34 Pt doing well this morning. Has gotten some rest but still quite fatigued. BF going OK. Ambulating, voiding and ena reg diet without difficulty. + flatus. Pain has been controlled with ibuprofen only - willing to consider [place] to help her rest more comfortably. Mod lochia. Noticed a little tingling in left foot - no weakness or change in gait or pain. 01/21/18 10:37 01/22/18 19:47 Doing ok this morning and states she feels like she is doing well physically, but teary eyed when talking about discharge. Would like to stay another night. She has been pumping and and feeling exhausted. Objective: 01/17/18 06:52 01/17/18 06:50 Patient ABO/Rh A POSITIVE 01/17/18 06:52 Uric Acid 2.5 mg/dL (2.5-6.8) 01/17/18 06:50 AST 30 IU/L (14-46) 01/17/18 06:50 ALT 23 IU/L (9-52) 01/17/18 06:50 Lactate Dehydrogenase 651 IU/L (313-618) H 01/17/18 06:50 Temp Pulse Resp BP Pulse Ox 36.6 C 102 H 18 131/93 H 96 01/22/18 09:08 01/22/18 09:08 01/22/18 09:08 01/22/18 09:08 01/22/18 09:08 Incision well approximated and healing wel VSS Respirations unlabored Extremities with minimal edema Lochia scant Fundus firm Nipples intact Physical Exam - Physical Exam EENT: PERRL/EOMI Neck: non-tender Respiratory: chest non-tender Cardiac/Chest: normal peripheral pulses Abdomen: normal bowel sounds, incision (well approximated, healing well) Skin: normal color Neuro/Psych: no motor/sensory deficits, alert, normal mood/affect, oriented x 3
[2018-01-22] MEDS: SENNOSIDES/DOCUSATE SODIUM TAB PO SCH ×2 (14:38→23:20)
[2018-01-22] MEDS: ACETAMINOPHEN 500 MG TAB PO PRN ×2 (14:39→15:33)
[2018-01-22 19:20] VITALS: BP 133/89
[2018-01-23] MEDS: IBUPROFEN 600 MG TAB PO PRN (09:15)
[2018-01-23] MEDS: SENNOSIDES/DOCUSATE SODIUM TAB PO SCH ×2 (09:16→11:49)
--- NOTE | 2018-01-23 11:26 | OBPP ---
Progress Note Assessment/Plan: Assessment: POD 4 s/p primary c/s for arrest of dilation Plan: d/c home, ibu and tyl for pain 01/23/18 11:24 Subjective/ Course: 01/19/18 10:34 Pt doing ok- states she was only able to get 1 hr of sleep since delivery. She feels good about decision for c/s- accepting that it was the right decision. She is sitting on side of bed. denies any pain at this time. She is working on today, will pump if necessary. She denies any pain or heavy bleeding. 01/20/18 14:09 Eladia is doing great this AM - happy to be getting some more rest. BF going okay , some sharp stinging pain in the right nipple, n s/sx of infection. Pain well controlled, incision is not bothering her in particular. 01/21/18 10:34 Pt doing well this morning. Has gotten some rest but still quite fatigued. BF going OK. Ambulating, voiding and ena reg diet without difficulty. + flatus. Pain has been controlled with ibuprofen only - willing to consider [place] to help her rest more comfortably. Mod lochia. Noticed a little tingling in left foot - no weakness or change in gait or pain. 01/21/18 10:37 01/22/18 19:47 Doing ok this morning and states she feels like she is doing well physically, but teary eyed when talking about discharge. Would like to stay another night. She has been pumping and and feeling exhausted. 01/23/18 11:25 pt doing ok - pain controlled with ibu and tyl. bld is light. urinating fine. ena reg diet and has had mult BMs. working on BF and pumping - milk is in. Objective: 01/17/18 06:52 01/17/18 06:50 Patient ABO/Rh A POSITIVE 01/17/18 06:52 Uric Acid 2.5 mg/dL (2.5-6.8) 01/17/18 06:50 AST 30 IU/L (14-46) 01/17/18 06:50 ALT 23 IU/L (9-52) 01/17/18 06:50 Lactate Dehydrogenase 651 IU/L (313-618) H 01/17/18 06:50 Temp Pulse Resp BP Pulse Ox 36.9 C 85 16 133/89 H 96 01/23/18 08:00 01/23/18 08:00 01/23/18 08:00 01/23/18 08:00 01/23/18 08:00 Uterine Position/Fundal Height: Umbilicus -1 Uterine Tone: Firm Physical Exam - Physical Exam Abdomen: non-tender, soft, other (incision CDI, FF at umb -1, lochia normal) Skin: normal color, warm/dry Neuro/Psych: alert, normal mood/affect
== END 2018-01-23 14:50 | disposition home or self-care (01) | DRG 766 ==
LOC: FLD 06:03 → FOB 01-19 04:40
PROVIDERS: ADMIT Advanced Practice Midwife; ATTEND Obstetrics & Gynecology
DX: O62.0 Primary inadequate contractions (principal); O61.0 Failed medical induction of labor; O48.0 Post-term pregnancy; O99.353 Diseases of the nervous system complicating pregnancy, third trimester; G43.109 Migraine with aura, not intractable, without status migrainosus; R60.9 Edema, unspecified; Z37.0 Single live birth; Z3A.41 41 weeks gestation of pregnancy
CPT/HCPCS: J0690; J1885; J2274; J2370; J2405; J2590; J3010; J3105

== ENCOUNTER → 2018-01-29 | Outpatient (CLI) | payer OTHER | LOC: FLACT 09:49 | PROVIDERS: ATTEND Obstetrics & Gynecology | DX: O92.79 Other disorders of lactation (principal) | CPT/HCPCS: G0463 ==